=== PATIENT | female | born 1990 ===

== ENCOUNTER 2016-05-18 14:19 | Emergency (ER) | payer MEDICAID ==
[2016-05-18 14:20] VITALS: BMI 38.4
[2016-05-18 14:31] VITALS: BP 120/70; PULSE 88; RESP 20; TEMP 97.3; O2SAT 98
--- NOTE | 2016-05-18 15:45 | ED PDOC ---
HPI: Headache Time Seen by Provider: 05/18/16 14:52 Chief Complaint (Nursing): Headache Chief Complaint (Provider): headache History Per: Patient History/Exam Limitations: no limitations Additional Complaint(s): 26 y/o with recurrent headaches described as pressure and squeezing as well as fullness on/off for several weeks, not the worst of her life, with some relief with OTC tylenol and motrin. She notes being seen in this ED as well as [facility] [place], dx with URI, sinusitis and was placed on abx. still with some headache and was concerned thus presented for re-evaluation. Past Medical History Reviewed: Historical Data, Nursing Documentation, Vital Signs Vital Signs: Last Vital Signs Temp 97.3 F L 05/18/16 14:28 Pulse 88 05/18/16 14:28 Resp 20 05/18/16 14:28 BP 120/70 05/18/16 14:28 Pulse Ox 98 05/18/16 14:28 - Medical History PMH: Anxiety - Surgical History Surgical History: (x 1) - Family History Family History: States: Unknown Family Hx - Living Arrangements Living Arrangements: With Family - Social History Current smoker - smoking cessation education provided: No Alcohol: Occasional Drugs: Denies - Immunization History Hx Tetanus Toxoid Vaccination: No Hx Influenza Vaccination: Yes Hx Pneumococcal Vaccination: No - Home Medications Home Medications: Ambulatory Orders Medication Instructions Recorded ALPRAZolam HALF TABLET [Xanax HALF 0.125 mg PO Q6 PRN #10 tab 04/23/16 TABLET] Ibuprofen [Motrin Tab] 600 mg PO Q6 PRN #15 tab 05/10/16 Triamcinolone Acetonide [Nasacort 1 spray NS DAILY #1 unit 05/18/16 Allergy 24Hr] - Allergies Allergies/Adverse Reactions: Allergies Allergy/AdvReac Type Severity Reaction Status Date / Time peanut Allergy SWELLING Verified 05/18/16 14:28 Review of Systems ROS Statement: Except As Marked, All Systems Reviewed And Found Negative Constitutional: Positive for: Malaise. Negative for: Fever Eyes: Negative for: Pain, Vision Change ENT: Positive for: Nose Discharge Cardiovascular: Negative for: Chest Pain Respiratory: Negative for: Shortness of Breath Gastrointestinal: Negative for: Abdominal Pain Genitourinary Female: Negative for: Dysuria Musculoskeletal: Negative for: Neck Pain Skin: Negative for: Rash Neurological: Positive for: Headache. Negative for: Weakness, Numbness, Confusion, Seizures, Altered Mental Status, Dizziness Psych: Positive for: Anxiety (hx ) Physical Exam - Reviewed Nursing Documentation Reviewed: Yes Vital Signs Reviewed: Yes - Physical Exam Appears: Positive for: Well, No Acute Distress Head Exam: Positive for: NORMAL INSPECTION Skin: Positive for: Normal Color, Warm, Dry Eye Exam: Positive for: Normal appearance, EOMI, PERRL. Negative for: Nystagmus , Periorbital swelling, Periorbital tenderness, Conjunctival injection ENT: Positive for: Normal ENT Inspection Neck: Positive for: Normal, Painless ROM Cardiovascular/Chest: Positive for: Regular Rate, Rhythm Respiratory: Positive for: Normal Breath Sounds Extremity: Positive for: Normal ROM, Capillary Refill (normal ). Negative for: Tenderness Neurologic/Psych: Positive for: Alert, stretcher operator II-XII (grossly intact ), Oriented, Mood/Affect (normal), Cerebellar Tests (normal intact ), Gait (normal ), Other ( rhomberg normal, strength 5/5 upper and lower extremities ). Negative for: Motor/Sensory Deficits, Aphasia, Facial Droop - Laboratory Results Urine POC: Negative - ECG O2 Sat by Pulse Oximetry: 98 Pulse Ox Interpretation: Normal Medical Decision Making Medical Decision Makin26 y/o with recurrent headaches for several weeks, seen in this ED as well as [facility] [place], dx with URI, sinusitis on abx at this time. - CT head - Upreg. sinus CT- IMPRESSION:Chronic pansinusitis. No evidence of acute sinusitis. head CT- IMPRESSION: No intracranial mass, hemorrhage or evidence of acute infarct. Paranasal sinusitis. Please see report of CT of paranasal sinuses of same date. discussed with her CT head results. normal neuro examination with no focal weakness or deficits, will start on Nasacort, she will continue abx and follow up with ENT return information discussed, stable for discharge. Disposition - Clinical Impression Clinical Impression: Headache, Sinusitis - Patient ED Disposition Is Patient to be Admitted: No Counseled Patient/Family Regarding: Studies Performed, Diagnosis, Need For Followup, Rx Given - Disposition Referrals: Morris Elizondo MD [Staff Provider] - [facility] [Outside] Disposition: Routine/Home Disposition Time: 16:30 Condition: STABLE Prescriptions: Triamcinolone Acetonide [Nasacort Allergy 24Hr] 1 spray NS DAILY #1 unit Instructions: Rhinosinusitis (ED), General Headache (ED) Print Language: PALESTINIAN
--- NOTE | 2016-05-18 16:09 | CT ---
PROCEDURE: CT HEAD WITHOUT CONTRAST. HISTORY: headache COMPARISON: None available. TECHNIQUE: Axial computed tomography images were obtained through the head/brain without intravenous contrast. Radiation dose: Total exam DLP = 768.37 mGy-cm. FINDINGS: HEMORRHAGE: No intracranial hemorrhage. BRAIN: No mass effect or edema. No atrophy or chronic microvascular ischemic changes. VENTRICLES: Unremarkable. No hydrocephalus. CALVARIUM: Unremarkable. PARANASAL SINUSES: Chronic frontal, ethmoid and sphenoid sinusitis. MASTOID AIR CELLS: Unremarkable as visualized. No inflammatory changes. OTHER FINDINGS: None. IMPRESSION: No intracranial mass, hemorrhage or evidence of acute infarct. Paranasal sinusitis. Please see report of CT of paranasal sinuses of same date.
--- NOTE | 2016-05-18 16:12 | CT ---
PROCEDURE: CT SINUSES WITHOUT CONTRAST HISTORY: pain COMPARISON: None TECHNIQUE: Contiguous axial CT images of the paranasal sinuses were obtained. Coronal and sagittal reformats were generated. Radiation dose: Total exam DLP = 600.52 mGy-cm. FINDINGS: FRONTAL SINUSES: Mucoperiosteal thickening. No fluid collection ETHMOID SINUSES: Mucoperiosteal thickening. No fluid collection. SPHENOID SINUSES: Minimal mucoperiosteal thickening. No fluid collection. MAXILLARY SINUSES: Mucoperiosteal thickening bilaterally. No fluid collection. No mass. Bilateral julio bullosa noted. SINUS DRAINAGE: The ostiomeatal unit is intact bilaterally. Both maxillary ostia are occluded by mucosal thickening. The frontoethmoidal recess is occluded bilaterally by mucosal thickening. Sphenoid ethmoidal recesses are occluded. NASAL SEPTUM: No significant nasal septal deviation. MASS: None. SKULL BASE: Unremarkable. TEMPORAL BONES: Middle ears and mastoid grossly unremarkable. OTHER FINDINGS: None. IMPRESSION: Chronic pansinusitis. No evidence of acute sinusitis.
== END 2016-05-18 16:45 | disposition home or self-care (01) ==
LOC: H.ER 14:19
DX: R51 Headache (principal); J32.9 Chronic sinusitis, unspecified

== ENCOUNTER 2016-08-28 15:23 | Emergency (ER) | payer MEDICAID ==
[2016-08-28 15:23] VITALS: BMI 38.4
[2016-08-28 15:34] VITALS: BP 143/60; PULSE 90; RESP 16; TEMP 98.7; O2SAT 100
--- NOTE | 2016-08-28 16:09 | ED PDOC ---
HPI: Abdomen Time Seen by Provider: 08/28/16 16:07 Chief Complaint (Nursing): Abdominal Pain Chief Complaint (Provider): ABDOMINAL PAIN History Per: Patient (26 Y/O FEMALE HERE WITH RIGHT LOWER QUADRANT ABDOMINAL PAIN CRAMPY INTERMITTENT ONGOING X 2 WEEKS. DENIES ANY FEVERS/CHILLS. DENIES ANY DYURIA/VAGINAL DISCHARGE. NOTES HEADACHE WELL.) Past Medical History Reviewed: Historical Data, Nursing Documentation, Vital Signs Vital Signs: Last Vital Signs Temp 98.7 F 08/28/16 15:32 Pulse 90 08/28/16 15:32 Resp 16 08/28/16 15:32 BP 143/60 08/28/16 15:32 Pulse Ox 100 08/28/16 17:29 - Medical History PMH: Anxiety - Surgical History Surgical History: (x 1) - Family History Family History: States: Unknown Family Hx - Immunization History Hx Tetanus Toxoid Vaccination: No Hx Influenza Vaccination: Yes Hx Pneumococcal Vaccination: No - Home Medications Home Medications: Ambulatory Orders Medication Instructions Recorded ALPRAZolam HALF TABLET [Xanax HALF 0.125 mg PO Q6 PRN #10 tab 04/23/16 TABLET] Ibuprofen [Motrin Tab] 600 mg PO Q6 PRN #15 tab 05/10/16 Triamcinolone Acetonide [Nasacort 1 spray NS DAILY #1 unit 05/18/16 Allergy 24Hr] - Allergies Allergies/Adverse Reactions: Allergies Allergy/AdvReac Type Severity Reaction Status Date / Time peanut Allergy SWELLING Verified 08/28/16 15:32 Review of Systems ROS Statement: Except As Marked, All Systems Reviewed And Found Negative Gastrointestinal: Positive for: Abdominal Pain Physical Exam - Reviewed Nursing Documentation Reviewed: Yes Vital Signs Reviewed: Yes - Physical Exam Appears: Positive for: Well, Non-toxic, No Acute Distress Head Exam: Positive for: ATRAUMATIC, NORMAL INSPECTION, NORMOCEPHALIC Skin: Positive for: Normal Color, Warm, DRY Eye Exam: Positive for: EOMI, Normal appearance, PERRL ENT: Positive for: Normal ENT Inspection Neck: Positive for: Normal, Painless ROM Cardiovascular/Chest: Positive for: Regular Rate, Rhythm Respiratory: Positive for: CNT, Normal Breath Sounds Gastrointestinal/Abdominal: Positive for: Normal Exam, Bowel Sounds, Soft Pelvic Exam: Positive for: Tender Adnexa (TENDER RIGHT ADNEXA) Back: Positive for: Normal Inspection Extremity: Positive for: Normal ROM Neurologic/Psych: Positive for: Alert, Oriented - Laboratory Results Result Diagrams: 08/28/16 16:20 08/28/16 16:20 - ECG O2 Sat by Pulse Oximetry: 100 - Progress ED Course And Treament: Patient left prior to US evaluation of right lower quadrant pain. Left prior signing AMA formwork. Disposition - Clinical Impression Clinical Impression: Abdominal pain in female - Disposition Disposition: Left W/O Treatment Disposition Time: 17:29 Condition: FAIR
[2016-08-28 16:34] LABS: BASO # 0.1 K/uL (0.0-0.2); BASO % 0.7 % (0.0-2.0); EOS # 0.6 K/uL (0.0-0.7); EOS % 7.9 % (0.0-4.0); HEMOGLOBIN 12.5 g/dL (12.0-16.0); LYMPH # 2.6 K/uL (1.0-4.3); LYMPH % 32.5 % (20.0-40.0); MEAN CELL VOLUME 89.4 fl (81.0-99.0); MEAN CORPUSCULAR HEMOGLOBIN 29.3 pg (27.0-31.0); MEAN CORPUSCULAR HGB CONC 32.8 g/dL (33.0-37.0); MEAN PLATELET VOLUME 8.3 fl (7.2-11.7); MONO # 0.4 K/uL (0.0-0.8); MONO % 5.5 % (0.0-10.0); NEUT # 4.3 K/uL (1.8-7.0); NEUT % 53.4 % (50.0-75.0); RBC 4.26 Mil/uL (3.80-5.20); RED CELL DISTRIBUTION WIDTH 12.5 % (11.5-14.5); WHITE BLOOD COUNT 8.1 K/uL (4.8-10.8)
[2016-08-28 16:39] LABS: ALB/GLOB RATIO 1.3 (1.0-2.1); ALBUMIN 4.2 g/dL (3.5-5.0); ALT/SGPT 36 U/L (9-52); AST/SGOT 33 U/L (14-36); BLOOD UREA NITROGEN 12 mg/dl (7-17); CALCIUM 9.3 mg/dL (8.4-10.2); GFR AFRICAN-AMERICAN > 60; GFR NON-AFRICAN AMERICAN > 60; LIPASE 64 U/L (23-300)
[2016-08-28 16:55] LABS: SQUAMOUS EPITHIAL 6 /hpf (0-5); URINE BACTERIA RARE (<OCC); URINE BILIRUBIN NEGATIVE (NEGATIVE); URINE BLOOD NEGATIVE (NEGATIVE); URINE CLARITY SLIGHTY-CLOUDY (Clear); URINE COLOR YELLOW (YELLOW); URINE GLUCOSE (UA) NEG (Normal); URINE LEUKOCYTE ESTERASE NEG Leu/uL (Negative); URINE NITRATE NEGATIVE (NEGATIVE); URINE PROTEIN NEGATIVE (NEGATIVE); URINE UROBILINOGEN 0.2-1.0 mg/dL (0.2-1.0)
== END 2016-08-28 17:38 | disposition home or self-care (01) ==
LOC: H.ER 15:23
DX: R10.13 Epigastric pain (principal); F41.9 Anxiety disorder, unspecified

== ENCOUNTER 2016-09-10 12:43 | Emergency (ER) | payer MEDICAID ==
[2016-09-10 12:43] VITALS: BMI 38.4
[2016-09-10 12:48] VITALS: BP 123/60; PULSE 90; RESP 18; TEMP 98; O2SAT 100
--- NOTE | 2016-09-10 13:42 | ED PDOC ---
HPI: Female Pain Time Seen by Provider: 09/10/16 12:48 Chief Complaint (Nursing): Abnormal Labs Chief Complaint (Provider): Repeat Lab/ Vaginal Spotting History Per: Patient History/Exam Limitations: no limitations Onset/Duration Of Symptoms: Days (1) Current Symptoms Are (Timing): Still Present Additional Complaint(s): Rupali Miller is a 26 y/o female presenting to the ER on 09/10/2016 for vaginal spotting. Patient states she was evaluated in this ED on 08/28/2016 for vaginal bleeding while being . At that time, no ultrasound was performed. She was advised to return to the ED 2-3 days later for repeat hormone level. She states she did not return to the ED as advised because she had to attend family matters, while also noting that her bleeding resolved on its own. Yesterday evening, patient developed vaginal spotting which was less than her prior bleeding. Patient reports no history of ectopic pregnancies. She denies any associated abdominal pain, pelvic pain, vaginal discharge, dysuria, or hematuria. Of note, patient reports having a miscarriage in April 2016 Past Medical History Reviewed: Historical Data, Nursing Documentation, Vital Signs Vital Signs: Last Vital Signs Temp 98 F 09/10/16 12:46 Pulse 90 09/10/16 12:46 Resp 18 09/10/16 12:46 BP 123/60 09/10/16 12:46 Pulse Ox 100 09/10/16 12:46 - Medical History PMH: Anxiety - Surgical History Surgical History: No Surg Hx, (x 1) - Family History Family History: States: Unknown Family Hx - Social History Current smoker - smoking cessation education provided: No Alcohol: None Drugs: Denies - Immunization History Hx Tetanus Toxoid Vaccination: No Hx Influenza Vaccination: Yes Hx Pneumococcal Vaccination: No - Home Medications Home Medications: Ambulatory Orders Medication Instructions Recorded Multivit/Folic Acid/I 1 tab PO DAILY #30 tab 09/10/16 [ Plus] - Allergies Allergies/Adverse Reactions: Allergies Allergy/AdvReac Type Severity Reaction Status Date / Time peanut Allergy SWELLING Verified 09/10/16 14:09 Review of Systems ROS Statement: Except As Marked, All Systems Reviewed And Found Negative Gastrointestinal: Negative for: Abdominal Pain Genitourinary Female: Positive for: Other ((+) Vaginal spotting ). Negative for : Dysuria, Hematuria, Vaginal Discharge, Pelvic Pain Physical Exam - Reviewed Nursing Documentation Reviewed: Yes Vital Signs Reviewed: Yes - Physical Exam Appears: Positive for: Non-toxic, No Acute Distress Head Exam: Positive for: ATRAUMATIC, NORMOCEPHALIC Skin: Positive for: Normal Color. Negative for: Rash Eye Exam: Positive for: Normal appearance Neck: Positive for: Normal Gastrointestinal/Abdominal: Positive for: Normal Exam, Soft. Negative for: Tenderness Back: Positive for: Normal Inspection. Negative for: L CVA Tenderness, R CVA Tenderness Neurologic/Psych: Positive for: Alert, Oriented. Negative for: Motor/Sensory Deficits - Laboratory Results Result Diagrams: 09/10/16 14:07 09/10/16 14:07 - ECG O2 Sat by Pulse Oximetry: 100 Medical Decision Making Medical Decision Makin:48 Initial Impression- 26 y/o female with vaginal spotting Initial Plan- * Beta-HCG * CMP * Urine Dip * Urine Preg * CBC w/ differential * Urinalysis * Ultrasound OB Pt will be placed under ED Observation. See ED OBS for further progress. Documented by Malcolm Mo, acting as a scribe for Juan Escobar PA-C All medical record entries made by the Scribe were at my direction and personally dictated by me. I have reviewed the chart and agree that the record accurately reflects my personal performance of the history, physical exam, medical decision making, and the department course for this patient. I have also personally directed, reviewed, and agree with the discharge instructions and disposition. ED OBSERVATION Discharge: Yes Date of observation admission: 09/10/16 Time of observation admission: 13:26 - Observation admission statement Patient is being placed in observation because:: Secondary to extensive ED workup - Goals of Observation Goals of observation are:: Labs, imaging results, re-evaluation, and final disposition - Progress Note Progress Note: 09/10/16 14:58 Pt. in no distress. Pt. en route to US. 09/10/16 15:54 ULTRASOUND OB FINDINGS: UTERUS: Gestational sac: Single intrauterine gestation. Heart rate: 128 bpm. age (Ultrasound estimated): 5 weeks and 5 days Varsha-gestational hemorrhage: There is a 3.5 x 0.7 x 2.0 cm well-circumscribed hypoechoic area anterior inferior to the gestational sac. . Date of delivery (Ultrasound estimated) : 05/08/2017 Uterus measures 9.8 x 4.4 x 6.1 cm. Normal in size. CERVIX: Long and closed. No cervical abnormality seen. RIGHT OVARY: Measures 3.2 x 2.3 x 2.3 cm. No mass lesion. Normal flow. LEFT OVARY: Measures 2.6 x 1.3 x 2.2 cm. No solid mass. Normal flow. FREE FLUID: None. OTHER FINDINGS: None. IMPRESSION: Single live intrauterine gestation with mean gestational age of 5 weeks and 5 days. The estimated date of delivery by ultrasound is 05/08/2017. The ultrasound dates correspond with the clinical dates. Informed of results and instructed to f/u with OBGYN for care. Disposition - Clinical Impression Clinical Impression: Threatened miscarriage - Patient ED Disposition Is Patient to be Admitted: No - Disposition Referrals: [facility] [Outside] [facility] [Outside] Disposition: Routine/Home Disposition Time: 16:31 Condition: STABLE Additional Instructions: FOLLOW UP WITH YOUR OBGYN FOR CARE WITHOUT FAIL. Prescriptions: Multivit/Folic Acid/I [ Plus] 1 tab PO DAILY #30 tab Instructions: Threatened Miscarriage (ED) Print Language: FRENCH
[2016-09-10 13:59] LABS: SQUAMOUS EPITHIAL 1 /hpf (0-5); URINE BACTERIA RARE (<OCC); URINE BILIRUBIN NEGATIVE (NEGATIVE); URINE BLOOD NEGATIVE (NEGATIVE); URINE CLARITY CLEAR (Clear); URINE COLOR YELLOW (YELLOW); URINE GLUCOSE (UA) NEG (Normal); URINE LEUKOCYTE ESTERASE NEG Leu/uL (Negative); URINE NITRATE NEGATIVE (NEGATIVE); URINE PROTEIN NEGATIVE (NEGATIVE); URINE UROBILINOGEN 0.2-1.0 mg/dL (0.2-1.0)
[2016-09-10 14:16] LABS: BASO % 0.6 % (0.0-2.0); EOS # 0.5 K/uL (0.0-0.7); EOS % 6.4 % (0.0-4.0); HEMOGLOBIN 12.6 g/dL (12.0-16.0); LYMPH # 2.2 K/uL (1.0-4.3); LYMPH % 29.9 % (20.0-40.0); MEAN CELL VOLUME 88.6 fl (81.0-99.0); MEAN CORPUSCULAR HEMOGLOBIN 29.5 pg (27.0-31.0); MEAN CORPUSCULAR HGB CONC 33.3 g/dL (33.0-37.0); MEAN PLATELET VOLUME 8.4 fl (7.2-11.7); MONO # 0.4 K/uL (0.0-0.8); MONO % 5.5 % (0.0-10.0); NEUT # 4.2 K/uL (1.8-7.0); NEUT % 57.6 % (50.0-75.0); NRBC % 0.2 % (0.0-0.0); RBC 4.28 Mil/uL (3.80-5.20); RED CELL DISTRIBUTION WIDTH 12.2 % (11.5-14.5); WHITE BLOOD COUNT 7.3 K/uL (4.8-10.8)
[2016-09-10 14:25] LABS: ALB/GLOB RATIO 1.3 (1.0-2.1); ALBUMIN 3.9 g/dL (3.5-5.0); ALT/SGPT 32 U/L (9-52); AST/SGOT 32 U/L (14-36); BLOOD UREA NITROGEN 10 mg/dl (7-17); CALCIUM 9.4 mg/dL (8.4-10.2); GFR AFRICAN-AMERICAN > 60; GFR NON-AFRICAN AMERICAN > 60
--- NOTE | 2016-09-10 15:44 | US ---
PROCEDURE: OB Pelvic Ultrasound HISTORY: vaginal spotting COMPARISON: None available. FINDINGS: UTERUS: Gestational sac: Single intrauterine gestation. Heart rate: 128 bpm. age (Ultrasound estimated): 5 weeks and 5 days Varsha-gestational hemorrhage: There is a 3.5 x 0.7 x 2.0 cm well-circumscribed hypoechoic area anterior inferior to the gestational sac. . Date of delivery (Ultrasound estimated) : 05/08/2017 Uterus measures 9.8 x 4.4 x 6.1 cm. Normal in size. CERVIX: Long and closed. No cervical abnormality seen. RIGHT OVARY: Measures 3.2 x 2.3 x 2.3 cm. No mass lesion. Normal flow. LEFT OVARY: Measures 2.6 x 1.3 x 2.2 cm. No solid mass. Normal flow. FREE FLUID: None. OTHER FINDINGS: None. IMPRESSION: Single live intrauterine gestation with mean gestational age of 5 weeks and 5 days. The estimated date of delivery by ultrasound is 05/08/2017. The ultrasound dates correspond with the clinical dates. 3.5 x 0.7 x 2.0 cm subchorionic hemorrhage. Clinical and ultrasound follow-up is recommended.
== END 2016-09-10 16:11 | disposition home or self-care (01) ==
LOC: H.ER 12:43
DX: O20.0 Threatened abortion (principal); Z3A.01 Less than 8 weeks gestation of pregnancy

== ENCOUNTER 2016-09-26 09:44 | Emergency (ER) | payer MEDICAID ==
[2016-09-26 09:52] VITALS: BP 120/60; PULSE 79; TEMP 97; O2SAT 100
[2016-09-26 09:53] VITALS: BMI 31.6
[2016-09-26] MEDS ORDERED: Sodium Chloride 0.9% 1,000 ML IV STA (10:23)
--- NOTE | 2016-09-26 10:28 | ED PDOC ---
HPI: Female Pain Time Seen by Provider: 09/26/16 09:54 Chief Complaint (Nursing): Female Genitourinary History Per: Patient Onset/Duration Of Symptoms: Days (2) Current Symptoms Are (Timing): Still Present Severity: Mild Pain Scale Rating Of: 2 Quality Of Discomfort: Cramping Associated Symptoms: Nausea, Vomiting. denies: Diarrhea, Urinary Symptoms Additional Complaint(s): Lower abd cramping assoc with vaginal spotting x 2 days. Seen here 09/10 for same. Has also had nausea and vomiting Abnormal Vaginal Bleeding: Yes Last Menstral Period: 8 weeks ago Past Medical History Vital Signs: Last Vital Signs Temp 97 F L 09/26/16 09:52 Pulse 79 09/26/16 09:52 Resp BP 120/60 09/26/16 09:52 Pulse Ox 100 09/26/16 09:52 - Medical History PMH: Anxiety - Surgical History Surgical History: (x 1) - Family History Family History: States: Unknown Family Hx - Immunization History Hx Tetanus Toxoid Vaccination: No Hx Influenza Vaccination: Yes Hx Pneumococcal Vaccination: No - Home Medications Home Medications: Ambulatory Orders Medication Instructions Recorded Multivit/Folic Acid/I 1 tab PO DAILY #30 tab 09/10/16 [ Plus] Ondansetron [Zofran] 4 mg PO Q8H #10 tab 09/26/16 - Allergies Allergies/Adverse Reactions: Allergies Allergy/AdvReac Type Severity Reaction Status Date / Time peanut Allergy SWELLING Verified 09/26/16 10:08 Review of Systems Constitutional: Negative for: Fever Gastrointestinal: Positive for: Nausea, Vomiting, Abdominal Pain Genitourinary Female: Positive for: Vaginal Bleeding Physical Exam - Physical Exam Appears: Positive for: Non-toxic, No Acute Distress Skin: Positive for: Normal Color, Warm, DRY Gastrointestinal/Abdominal: Positive for: Bowel Sounds, Soft. Negative for: Tenderness Pelvic Exam: Positive for: External Exam Normal, No Cerv. Motion Tender, No Masses. Negative for: Active Bleeding, Tender Adnexa, Tender Uterus - Laboratory Results Result Diagrams: 09/26/16 10:28 09/26/16 10:28 - ECG O2 Sat by Pulse Oximetry: 100 Disposition - Clinical Impression Clinical Impression: Threatened miscarriage, Hyperemesis gravidarum - Patient ED Disposition Is Patient to be Admitted: No Counseled Patient/Family Regarding: Studies Performed, Diagnosis, Need For Followup, Rx Given - Disposition [facility] Disposition: Routine/Home Disposition Time: 12:03 Condition: FAIR Prescriptions: Ondansetron [Zofran] 4 mg PO Q8H #10 tab Instructions: Threatened Miscarriage (ED), Hyperemesis Gravidarum (ED) Forms: [facility] [facility] (Northern Irish)
[2016-09-26 10:40] LABS: BASO % 0.4 % (0.0-2.0); EOS # 0.3 K/uL (0.0-0.7); EOS % 3.5 % (0.0-4.0); HEMATOCRIT 37.9 % (34.0-47.0); LYMPH % 22.3 % (20.0-40.0); MEAN CELL VOLUME 88.7 fl (81.0-99.0); MEAN CORPUSCULAR HEMOGLOBIN 29.5 pg (27.0-31.0); MEAN CORPUSCULAR HGB CONC 33.2 g/dL (33.0-37.0); MEAN PLATELET VOLUME 8.2 fl (7.2-11.7); MONO # 0.4 K/uL (0.0-0.8); MONO % 4.9 % (0.0-10.0); NEUT # 6.3 K/uL (1.8-7.0); NEUT % 68.9 % (50.0-75.0); NRBC % 0.1 % (0.0-0.0); RED CELL DISTRIBUTION WIDTH 12.2 % (11.5-14.5); WHITE BLOOD COUNT 9.1 K/uL (4.8-10.8)
[2016-09-26 10:46] LABS: ALB/GLOB RATIO 1.3 (1.0-2.1); ALKALINE PHOSPHATASE 53 U/L (38-126); ALT/SGPT 26 U/L (9-52); AST/SGOT 29 U/L (14-36); BILIRUBIN,TOTAL 0.4 mg/dl (0.2-1.3); BLOOD UREA NITROGEN 8 mg/dl (7-17); CALCIUM 9.2 mg/dL (8.4-10.2); CARBON DIOXIDE 24 mmol/L (22-30); CHLORIDE 106 mmol/L (98-107); GFR AFRICAN-AMERICAN > 60; GLUCOSE,RANDOM 94 mg/dL (65-105); POTASSIUM 3.9 MMOL/L (3.6-5.0); SODIUM 138 mmol/l (132-148)
--- NOTE | 2016-09-26 11:58 | US ---
PROCEDURE: OB Pelvic Ultrasound HISTORY: Vaginal bleed COMPARISON: Comparison made with prior study 09/10/2016. FINDINGS: UTERUS: Gestational sac: MSD = 3.15 cm = 8 weeks 1 day. Yolk sac: 0.2 cm pole: CRL = 1.77 = 8 weeks 2 days Heart rate: 164 bpm. age (Ultrasound estimated): 8 weeks 2 days +/-0 weeks 4 days Varsha-gestational hemorrhage: None. Date of delivery (Ultrasound estimated) : 05/06/2017 Uterus measures 10.4 x 7.0 x 8.0 cm. Normal in size and appearance. CERVIX: Long and closed measuring approximately 3.3 cm. No cervical abnormality seen. RIGHT OVARY: Measures 2.6 x 1.7 x 2.2 cm. No mass lesion. Normal flow. LEFT OVARY: Measures 2.3 x 1.5 x 1.5 cm. No solid mass. Normal flow. FREE FLUID: None. OTHER FINDINGS: None. IMPRESSION: Living intrauterine station approximately 8 weeks 2 days plus or minus 0 weeks 4 days heart rate detected at 164 BPM
== END 2016-09-26 12:10 | disposition home or self-care (01) ==
LOC: H.ER 09:44
DX: O20.0 Threatened abortion (principal); O21.0 Mild hyperemesis gravidarum; Z3A.08 8 weeks gestation of pregnancy; F41.9 Anxiety disorder, unspecified

== ENCOUNTER 2016-11-25 10:34 | Emergency (ER) | payer MEDICAID ==
[2016-11-25 10:48] VITALS: BP 140/69; PULSE 91; RESP 16; TEMP 99.1; O2SAT 100
[2016-11-25 10:49] VITALS: BMI 30.1
[2016-11-25] MEDS ORDERED: Sodium Chloride 0.9% 1,000 ML IV STA (11:06)
--- NOTE | 2016-11-25 11:20 | ED PDOC ---
HPI: Abdomen Time Seen by Provider: 11/25/16 10:50 Chief Complaint (Nursing): Abdominal Pain Chief Complaint (Provider): Abdominal Pain History Per: Patient History/Exam Limitations: no limitations Current Symptoms Are (Timing): Still Present Additional Complaint(s): 26 y/o female, presents to the emergency department with a complaint of a sharp lower region abdominal pain x1 week. Associated with spotting last night but had resolved since. 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 States she spoke to her primary care doctor who advised her to visit the emergency department if she continues to have abdominal pain or sees spotting. Denies painful urination, bloody urination, diarrhea, fever, or chills. PMD: Dr. Duglas Shields MD Past Medical History Reviewed: Historical Data, Nursing Documentation, Vital Signs Vital Signs: Last Vital Signs Temp 99.1 F 11/25/16 10:47 Pulse 91 H 11/25/16 10:47 Resp 16 11/25/16 10:47 BP 140/69 11/25/16 10:47 Pulse Ox 100 11/25/16 13:25 - Medical History PMH: Anxiety Denies: Chronic Kidney Disease - Surgical History Surgical History: (x 1) - Family History Family History: States: Unknown Family Hx - Social History Current smoker - smoking cessation education provided: No Alcohol: None Drugs: Denies - Immunization History Hx Tetanus Toxoid Vaccination: No Hx Influenza Vaccination: Yes Hx Pneumococcal Vaccination: No - Home Medications Home Medications: Ambulatory Orders Medication Instructions Recorded No Known Home Med 11/25/16 - Allergies Allergies/Adverse Reactions: Allergies Allergy/AdvReac Type Severity Reaction Status Date / Time peanut Allergy SWELLING Verified 11/18/16 11:28 Review of Systems ROS Statement: Except As Marked, All Systems Reviewed And Found Negative Constitutional: Negative for: Fever, Chills Gastrointestinal: Positive for: Abdominal Pain. Negative for: Diarrhea Genitourinary Female: Positive for: Vaginal Bleeding (Spotting). Negative for: Dysuria, Hematuria Physical Exam - Reviewed Nursing Documentation Reviewed: Yes Vital Signs Reviewed: Yes - Physical Exam Appears: Positive for: Non-toxic, No Acute Distress Head Exam: Positive for: ATRAUMATIC, NORMAL INSPECTION, NORMOCEPHALIC Skin: Positive for: Normal Color, Warm, Dry Eye Exam: Positive for: Normal appearance Neck: Positive for: Normal, Supple Cardiovascular/Chest: Positive for: Regular Rate, Rhythm. Negative for: Murmur Respiratory: Positive for: Normal Breath Sounds. Negative for: Accessory Muscle Use, Respiratory Distress Gastrointestinal/Abdominal: Positive for: Soft, Tenderness (Bilateral lower quadrant tenderness.), Other (Suprapubic region is normal. ). Negative for: Normal Exam Back: Positive for: Normal Inspection. Negative for: L CVA Tenderness, R CVA Tenderness Neurologic/Psych: Positive for: Alert, Oriented (x3) - Laboratory Results Result Diagrams: 11/25/16 11:24 11/25/16 11:24 - ECG O2 Sat by Pulse Oximetry: 100 (RA) Pulse Ox Interpretation: Normal Medical Decision Making Medical Decision Making: Time: 10:50 Initial Impression: Abdominal pain in setting of known Initial Plan: --Type and Screen --BMP --Urine Preg --CBC w/ diff --PTT & Prothrombin --Sodium Chloride 1L IV --Urinalysis --OB US --Reevaluation Scribe Attestation: Documented by Wendi De La Fuente, acting as a scribe for Sveta Angulo MD. Provider Scribe Attestation: All medical record entries made by the Scribe were at my direction and personally dictated by me. I have reviewed the chart and agree that the record accurately reflects my personal performance of the history, physical exam, medical decision making, and the department course for this patient. I have also personally directed, reviewed, and agree with the discharge instructions and disposition. Disposition - Clinical Impression Clinical Impression: Threatened - Patient ED Disposition Is Patient to be Admitted: No Doctor Will See Patient In The: Office Counseled Patient/Family Regarding: Diagnosis, Need For Followup - Disposition [facility]errals[facility] [[facility]] [facility] [Outside] [facility] [Outside] Disposition: Routine/Home Disposition Time: 14:00 Condition: STABLE Instructions: Threatened Miscarriage (ED) Forms: [facility] (Frisian) - POA Present On Arrival: None
[2016-11-25 11:35] LABS: BASO % 0.4 % (0.0-2.0); EOS # 0.4 K/uL (0.0-0.7); EOS % 3.9 % (0.0-4.0); HEMATOCRIT 35.5 % (34.0-47.0); LYMPH # 1.8 K/uL (1.0-4.3); LYMPH % 17.3 % (20.0-40.0); MEAN CELL VOLUME 90.2 fl (81.0-99.0); MEAN CORPUSCULAR HEMOGLOBIN 29.7 pg (27.0-31.0); MEAN PLATELET VOLUME 8.1 fl (7.2-11.7); MONO # 0.5 K/uL (0.0-0.8); MONO % 4.7 % (0.0-10.0); NEUT # 7.7 K/uL (1.8-7.0); NEUT % 73.7 % (50.0-75.0); NRBC % 0.1 % (0.0-0.0); WHITE BLOOD COUNT 10.5 K/uL (4.8-10.8)
[2016-11-25 11:43] LABS: BLOOD UREA NITROGEN 7 mg/dl (7-17); CALCIUM 9.1 mg/dL (8.4-10.2); CARBON DIOXIDE 22 mmol/L (22-30); CHLORIDE 107 mmol/L (98-107); GFR AFRICAN-AMERICAN > 60; GLUCOSE,RANDOM 83 mg/dL (65-105); POTASSIUM 3.8 MMOL/L (3.6-5.0); SODIUM 137 mmol/l (132-148)
[2016-11-25 12:14] LABS: PARTIAL THROMBOPLASTIN TIME 29.7 Seconds (25.6-37.1)
[2016-11-25 12:43] LABS: RBC URINE 6 /hpf (0-3); URINE BILIRUBIN NEGATIVE (NEGATIVE); URINE BLOOD NEGATIVE (NEGATIVE); URINE COLOR YELLOW (YELLOW); URINE GLUCOSE (UA) NEG (Normal); URINE KETONE NEGATIVE (NEGATIVE); URINE LEUKOCYTE ESTERASE TRACE Leu/uL (Negative); URINE PROTEIN 30 mg/dL (NEGATIVE); URINE UROBILINOGEN 0.2-1.0 mg/dL (0.2-1.0); WBC URINE 6 /hpf (0-5)
--- NOTE | 2016-11-25 15:21 | US ---
PROCEDURE: OB Pelvic Ultrasound HISTORY: COMPARISON: None available. FINDINGS: UTERUS: Gestational sac: Single intrauterine gestation. Heart rate: 145 bpm. age (Ultrasound estimated): 17 weeks 4 days +/-1 week 2 days. Varsha-gestational hemorrhage: None. Date of delivery (Ultrasound estimated) : 05/01/2017 Placenta seen at the uterine fundus. Amount of amniotic fluid is adequate. CERVIX: The cervix is closed measures 5 centimeter. RIGHT OVARY: Was not visualized LEFT OVARY: Was not visualized FREE FLUID: None. OTHER FINDINGS: None. IMPRESSION: Single intrauterine live with ultrasound estimated gestational age of 17 weeks 4 days +/-1 week 2 days. Estimated date of delivery by ultrasound is 05/01/2017.
== END 2016-11-25 14:47 | disposition home or self-care (01) ==
LOC: H.ER 10:34
DX: O20.0 Threatened abortion (principal); Z3A.17 17 weeks gestation of pregnancy; F41.9 Anxiety disorder, unspecified
CPT/HCPCS: 76815; 80048; 81003; 81025; 85025; 85610; 85730; 86850; 86900; 96360; 96361; 99282; J7040

== ENCOUNTER 2017-02-14 19:22 | Emergency (ER) | payer MEDICAID ==
[2017-02-14 20:12] VITALS: BMI 31.9
[2017-02-14 21:12] LABS: RBC URINE 1 /hpf (0-3); URINE BACTERIA RARE (<OCC); URINE BILIRUBIN NEGATIVE (NEGATIVE); URINE BLOOD NEGATIVE (NEGATIVE); URINE COLOR YELLOW (YELLOW); URINE GLUCOSE (UA) NEG (Normal); URINE KETONE NEGATIVE (NEGATIVE); URINE LEUKOCYTE ESTERASE NEG Leu/uL (Negative); URINE PROTEIN NEGATIVE (NEGATIVE); URINE UROBILINOGEN 0.2-1.0 mg/dL (0.2-1.0); WBC URINE 2 /hpf (0-5)
--- NOTE | 2017-02-14 21:24 | US ---
EXAM: US After First Trimester, Transabdominal CLINICAL HISTORY: 26 years old, female; Pain; Pain indication: Cramps/contractions as per pt. ; ; Additional info: Ctx at ? 30 weeks ga TECHNIQUE: Real-time transabdominal obstetrical ultrasound of the maternal pelvis and a second or third trimester with image documentation. COMPARISON: No relevant prior studies available. FINDINGS: Fetus: Single live intrauterine gestation. Heart rate: heart rate of 144 beats per minute. Presentation: Cephalic. Placenta: Posterior fundal. No placenta previa or abruption. Amniotic fluid: MASON = 13.2 cm. Anatomy: No gross anomaly is appreciated. BIOMETRICS Gestational age by US: Estimated gestational age of 29 weeks 0 days by measurements. EFW: Estimated weight of 1220 g. BPD: 7.5 cm, correlating with 30 weeks one day. HC: 26.7 cm, correlating with 29 weeks 0 days. AC: 22.9 cm, correlating with 27 weeks 2 days. FL: 5.6 cm, correlating with 29 weeks 4 days. MATERNAL: Uterus: Unremarkable. No myometrial mass. Cervix: No cervical dilatation or effacement. Free fluid: No free fluid. IMPRESSION: 1. Single live intrauterine gestation. EXAM: US , Transvaginal CLINICAL HISTORY: 26 years old, female; Pain; Pain indication: Cramps/contractions as per pt. ; ; Additional info: Ctx at ? 30 weeks ga TECHNIQUE: Real-time endovaginal obstetrical ultrasound of the maternal pelvis and second or third trimester with image documentation. Endovaginal imaging was used for better evaluation of the cervix. COMPARISON: No relevant prior studies available. FINDINGS: Fetus: Single live intrauterine gestation. Heart rate: heart rate of 144 beats per minute. Presentation: Cephalic. Placenta: Posterior fundal. No placenta previa or abruption. Amniotic fluid: MASON = 13.2 cm. Anatomy: No gross anomaly is appreciated. BIOMETRICS Gestational age by US: Estimated gestational age of 29 weeks 0 days by measurements. EFW: Estimated weight of 1220 g. BPD: 7.5 cm, correlating with 30 weeks one day. HC: 26.7 cm, correlating with 29 weeks 0 days. AC: 22.9 cm, correlating with 27 weeks 2 days. FL: 5.6 cm, correlating with 29 weeks 4 days. MATERNAL: Uterus: Unremarkable. No myometrial mass. Cervix: No cervical dilatation or effacement. Free fluid: No free fluid. IMPRESSION: 1. Single live intrauterine gestation. EXAM: US Biophysical Profile Without Non-Stress Testing CLINICAL HISTORY: 26 years old, female; Pain; Pain indication: Cramps/contractions as per pt. ; ; Additional info: Ctx at ? 30 weeks ga TECHNIQUE: Real-time ultrasound of the maternal pelvis for biophysical profile evaluation with image documentation. COMPARISON: No relevant prior studies available. FINDINGS: breathing movements: Present. Score 2/2. Gross body movements: Present. Score 2/2. tone: Present. Score 2/2. Qualitative amniotic fluid volume: Within normal limits. Score 2/2. IMPRESSION: Normal biophysical profile ultrasound. Score 8/8.
[2017-02-15 04:39] VITALS: BP 100/51; PULSE 74; RESP 17; TEMP 97.9
== END 2017-02-14 22:00 | disposition home or self-care (01) ==
LOC: H.EROB2 19:22
DX: O26.93 Pregnancy related conditions, unspecified, third trimester (principal); R10.2 Pelvic and perineal pain; Z3A.30 30 weeks gestation of pregnancy; Z87.59 Personal history of other complications of pregnancy, childbirth and the puerperium

== ENCOUNTER 2017-09-30 22:37 | Emergency (ER) | payer SELFPAY ==
[2017-09-30 22:37] VITALS: BMI 31.9
[2017-09-30 23:03] VITALS: O2SAT 100
[2017-10-01] MEDS ORDERED: Sodium Chloride 0.9% 1,000 ML IV STA (00:54)
--- NOTE | 2017-10-01 00:57 | ED PDOC ---
HPI:Nausea, Vomiting, Diarrhea Time Seen by Provider: 10/01/17 00:45 Chief Complaint (Nursing): Abdominal Pain Chief Complaint (Provider): : vomiting History Per: Patient History/Exam Limitations: no limitations Onset/Duration Of Symptoms: Days (1) Current Symptoms Are (Timing): Still Present Additional Complaint(s): 27 y/o female presents for evaluation of multiple episodes of vomiting x 1 day. Patient states she found out she was 2 weeks ago, LMP 07/06/17, states she has not received care thus far because she plans on terminating the , has appt 10/05. Patient states after the first few episodes of vomiting she began to develop "burning" in her upper abdomen. Denies fever, chest pain, shortness of breath, palpitations, vaginal bleeding/discharge, urinary symptoms. Abnormal Vaginal Bleeding: No Last Menstral Period: 07/06/17 : 6 Para: 3 Miscarriage: 2 Past Medical History Reviewed: Historical Data, Nursing Documentation, Vital Signs Vital Signs: Last Vital Signs Temp 99.1 F 09/30/17 23:02 Pulse 95 H 09/30/17 23:02 Resp 20 09/30/17 23:02 BP 115/67 09/30/17 23:02 Pulse Ox 100 09/30/17 23:02 - Medical History PMH: Anxiety Denies: Chronic Kidney Disease - Surgical History Surgical History: (x 1) - Family History Family History: States: Unknown Family Hx - Immunization History Hx Tetanus Toxoid Vaccination: No Hx Influenza Vaccination: Yes Hx Pneumococcal Vaccination: No - Home Medications Home Medications: Ambulatory Orders Medication Instructions Recorded Doxylamine/Pyridoxine HCl (B6) 1 - 2 each PO HS #16 tablet. 10/01/17 [Dicamanda Levine 10-10 mg Tablet] Nitrofurantoin Macrocrystals 100 mg PO BID #13 cap 10/01/17 [Macrobid] - Allergies Allergies/Adverse Reactions: Allergies Allergy/AdvReac Type Severity Reaction Status Date / Time peanut Allergy SWELLING Verified 11/18/16 11:28 Review of Systems ROS Statement: Except As Marked, All Systems Reviewed And Found Negative Gastrointestinal: Positive for: Nausea, Vomiting, Abdominal Pain Physical Exam - Reviewed Nursing Documentation Reviewed: Yes Vital Signs Reviewed: Yes - Physical Exam Appears: Positive for: Well, Non-toxic, No Acute Distress Head Exam: Positive for: ATRAUMATIC, NORMAL INSPECTION, NORMOCEPHALIC Skin: Positive for: Normal Color Eye Exam: Positive for: Normal appearance ENT: Positive for: Normal ENT Inspection Cardiovascular/Chest: Positive for: Regular Rate, Rhythm Respiratory: Positive for: Normal Breath Sounds Gastrointestinal/Abdominal: Positive for: Bowel Sounds, Soft, Tenderness ( epigsatric) Back: Positive for: Normal Inspection Extremity: Positive for: Normal ROM Neurologic/Psych: Positive for: Alert, Oriented - Laboratory Results Result Diagrams: 10/01/17 01:16 10/01/17 01:16 - ECG O2 Sat by Pulse Oximetry: 100 - Progress ED Course And Treament: labs, IV fluids, IV zofran, IV pepcid On re-eval, patient states she is feeling better. Tolerated PO Patient educated on findings, discharged with rx Macrobid (dose given in ED), Chilo Advised follow up Loading Checker 2-3 days Return precautions given Disposition - Clinical Impression Clinical Impression: Hyperemesis gravidarum, Urinary tract infection - Patient ED Disposition Is Patient to be Admitted: No Counseled Patient/Family Regarding: Studies Performed, Diagnosis, Need For Followup, Rx Given - Disposition [facility] Duglas Shields Jr., MD [Primary Care Provider] - Disposition: Routine/Home Disposition Time: 04:21 Condition: IMPROVED Prescriptions: Doxylamine/Pyridoxine HCl (B6) [Chilo Levine 10-10 mg Tablet] 1 - 2 each PO HS # 16 tablet. Nitrofurantoin Macrocrystals [Macrobid] 100 mg PO BID #13 cap Instructions: Hyperemesis Gravidarum, Urinary Tract Infections in Adults Forms: [facility] ([place])
[2017-10-01 01:27] LABS: BASO % 0.2 % (0.0-2.0); EOS # 0.2 K/uL (0.0-0.7); EOS % 1.6 % (0.0-4.0); HEMOGLOBIN 13.2 g/dL (12.0-16.0); LYMPH # 0.6 K/uL (1.0-4.3); LYMPH % 5.2 % (20.0-40.0); MEAN CELL VOLUME 88.1 fl (81.0-99.0); MEAN CORPUSCULAR HEMOGLOBIN 29.5 pg (27.0-31.0); MEAN CORPUSCULAR HGB CONC 33.5 g/dL (33.0-37.0); MEAN PLATELET VOLUME 7.8 fl (7.2-11.7); MONO # 0.5 K/uL (0.0-0.8); MONO % 4.4 % (0.0-10.0); NEUT # 11.1 K/uL (1.8-7.0); NEUT % 88.6 % (50.0-75.0); PLATELET COUNT 189 K/uL (130-400); RBC 4.48 Mil/uL (3.80-5.20); RED CELL DISTRIBUTION WIDTH 13.1 % (11.5-14.5); WHITE BLOOD COUNT 12.5 K/uL (4.8-10.8)
[2017-10-01 01:33] LABS: ALB/GLOB RATIO 1.3 (1.0-2.1); ALBUMIN 4.2 g/dL (3.5-5.0); ALT/SGPT 25 U/L (9-52); AST/SGOT 27 U/L (14-36); BLOOD UREA NITROGEN 11 mg/dl (7-17); CALCIUM 9.3 mg/dL (8.4-10.2); GFR AFRICAN-AMERICAN > 60; GFR NON-AFRICAN AMERICAN > 60; LIPASE 79 U/L (23-300)
[2017-10-01 02:05] LABS: SQUAMOUS EPITHIAL 15 /hpf (0-5); URINE BACTERIA OCC (<OCC); URINE BILIRUBIN NEGATIVE (NEGATIVE); URINE BLOOD NEGATIVE (NEGATIVE); URINE CLARITY CLOUDY (Clear); URINE COLOR AMBER (YELLOW); URINE GLUCOSE (UA) NEG (Normal); URINE LEUKOCYTE ESTERASE MOD Leu/uL (Negative); URINE PROTEIN 30 mg/dL (NEGATIVE)
[2017-10-01 02:49] LABS: ANISOCYTOSIS SLIGHT; BANDS 1 % (0-2); BASOPHIL 1 % (0-2); EOSINOPHIL 1 % (0-7); HYPOCHROMIC SLIGHT; LYMPHOCYTE 5 % (20-50); MONOCYTE 2 % (0-10); NEUTROPHIL 90 % (42-75); PLATELET ESTIMATE NORMAL (NORMAL); TOTAL CELLS COUNTED 100
[2017-10-01 02:50] LABS: LARGE PLATELETS PRESENT
[2017-10-01 06:18] VITALS: BP 130/89; PULSE 89; RESP 17; TEMP 98.8
== END 2017-10-01 06:17 | disposition home or self-care (01) ==
LOC: H.ER 22:37
DX: O21.0 Mild hyperemesis gravidarum (principal); O23.40 Unspecified infection of urinary tract in pregnancy, unspecified trimester; F41.9 Anxiety disorder, unspecified
CPT/HCPCS: 80053; 81003; 81025; 83690; 85025; 87086; 96361; 96365; 96375; 99283; J2405; J2765; J7030

== ENCOUNTER 2017-11-25 12:24 | Emergency (ER) | payer MEDICAID ==
[2017-11-25 12:44] VITALS: BMI 32.3
[2017-11-25 13:29] LABS: SQUAMOUS EPITHIAL 9 /hpf (0-5); URINE BACTERIA MANY (<OCC); URINE BILIRUBIN NEGATIVE (NEGATIVE); URINE BLOOD MODERATE (NEGATIVE); URINE CLARITY TURBID (Clear); URINE COLOR AMBER (YELLOW); URINE GLUCOSE (UA) NEG (Normal); URINE LEUKOCYTE ESTERASE TRACE Leu/uL (Negative); URINE PROTEIN 100 mg/dL (NEGATIVE); URINE UROBILINOGEN 0.2-1.0 mg/dL (0.2-1.0)
--- NOTE | 2017-11-25 13:38 | ED PDOC ---
HPI: Female Pain Time Seen by Provider: 11/25/17 13:20 Chief Complaint (Nursing): Female Genitourinary Chief Complaint (Provider): VAGINAL BLEEDING History Per: Patient (27 Y/O FEMALE RECENT D &C 11/17 HERE FOR EVALUATION OF HEAVY VAGINAL BLEEDING WITH CLOTS. WAS TREATED WITH ANTIBIOTICS X 5 DAYS BY CLINIC AND ALSO TOOK AUGMENTIN FOR DENTAL PAIN. DENIES ANY FEVERS/CHILLS BUT NOTES SUPRAPUBIC TENDERNESS.) Past Medical History Reviewed: Historical Data, Nursing Documentation, Vital Signs Vital Signs: Last Vital Signs Temp 98.4 F 11/25/17 12:41 Pulse 78 11/25/17 12:41 Resp 18 11/25/17 12:41 BP 126/77 11/25/17 12:41 Pulse Ox 99 11/25/17 12:41 - Medical History PMH: Anxiety Denies: Chronic Kidney Disease - Surgical History Surgical History: (x 1) - Family History Family History: States: Unknown Family Hx - Immunization History Hx Tetanus Toxoid Vaccination: No Hx Influenza Vaccination: Yes Hx Pneumococcal Vaccination: No - Home Medications Home Medications: Ambulatory Orders Medication Instructions Recorded Doxylamine/Pyridoxine HCl (B6) 1 - 2 each PO HS #16 tablet. 10/01/17 [Chilo Levine 10-10 mg Tablet] Nitrofurantoin Macrocrystals 100 mg PO BID #13 cap 10/01/17 [Macrobid] Cephalexin [Keflex] 500 mg PO TID #15 capsule 11/25/17 miSOPROStol [Cytotec] 3 tab PO ONCE PRN #3 tab 11/25/17 - Allergies Allergies/Adverse Reactions: Allergies Allergy/AdvReac Type Severity Reaction Status Date / Time peanut Allergy SWELLING Verified 11/18/16 11:28 Review of Systems ROS Statement: Except As Marked, All Systems Reviewed And Found Negative Physical Exam - Reviewed Nursing Documentation Reviewed: Yes Vital Signs Reviewed: Yes - Physical Exam Appears: Positive for: Well, Non-toxic, No Acute Distress Head Exam: Positive for: ATRAUMATIC, NORMAL INSPECTION, NORMOCEPHALIC Skin: Positive for: Normal Color, Warm, DRY Eye Exam: Positive for: EOMI, Normal appearance, PERRL ENT: Positive for: Normal ENT Inspection Neck: Positive for: Normal, Painless ROM Cardiovascular/Chest: Positive for: Regular Rate, Rhythm Respiratory: Positive for: CNT, Normal Breath Sounds Gastrointestinal/Abdominal: Positive for: Normal Exam, Soft Pelvic Exam: Positive for: Other (CLOSED CERVIX. VAGINAL BLEEDING IN VAGINAL VAULT.) Back: Positive for: Normal Inspection Extremity: Positive for: Normal ROM Neurologic/Psych: Positive for: Alert, Oriented - Laboratory Results Result Diagrams: 11/25/17 14:00 11/25/17 14:00 Urine POC: Positive Urine dip results: Positive for: Leukocyte Esterase, Blood, Nitrate - ECG O2 Sat by Pulse Oximetry: 99 - Progress ED Course And Treament: US TRANSVAGINAL: IMPRESSION: Trace complex fluid within the endometrial canal likely reflecting blood products. D/W DR. OLIVERA. RECOMMENDS CYTOTEC 600MG X 1 DOSE FOR PERSISTENT BLEEDING. D/W PATIENT SIDE EFFECTS OF NAUSEA,ABDOMINAL CRAMPING. Disposition - Clinical Impression Clinical Impression: Vaginal bleeding, Urinary tract infection - Patient ED Disposition Is Patient to be Admitted: No - Disposition Disposition: Routine/Home Disposition Time: 15:53 Condition: FAIR Prescriptions: Cephalexin [Keflex] 500 mg PO TID #15 capsule miSOPROStol [Cytotec] 3 tab PO ONCE PRN #3 tab PRN Reason: Other Instructions: Urinary Tract Infections in Adults, Dilation and Curettage
[2017-11-25 14:12] LABS: BASO # 0.1 K/uL (0.0-0.2); EOS # 0.7 K/uL (0.0-0.7); HEMOGLOBIN 12.7 g/dL (12.0-16.0); LYMPH # 2.5 K/uL (1.0-4.3); LYMPH % 35.9 % (20.0-40.0); MEAN CELL VOLUME 89.7 fl (81.0-99.0); MEAN CORPUSCULAR HEMOGLOBIN 29.8 pg (27.0-31.0); MEAN CORPUSCULAR HGB CONC 33.2 g/dL (33.0-37.0); MEAN PLATELET VOLUME 7.7 fl (7.2-11.7); MONO # 0.3 K/uL (0.0-0.8); MONO % 4.8 % (0.0-10.0); NEUT # 3.4 K/uL (1.8-7.0); NEUT % 48.3 % (50.0-75.0); NRBC % 0.1 % (0.0-0.0); RBC 4.26 Mil/uL (3.80-5.20); RED CELL DISTRIBUTION WIDTH 13.1 % (11.5-14.5); WHITE BLOOD COUNT 6.9 K/uL (4.8-10.8)
[2017-11-25 14:31] LABS: ALB/GLOB RATIO 1.1 (1.0-2.1); ALBUMIN 3.9 g/dL (3.5-5.0); ALT/SGPT 22 U/L (9-52); AST/SGOT 24 U/L (14-36); BLOOD UREA NITROGEN 9 mg/dl (7-17); CALCIUM 9.2 mg/dL (8.4-10.2); GFR NON-AFRICAN AMERICAN > 60
--- NOTE | 2017-11-25 14:35 | US ---
Date of service: 11/25/2017 HISTORY: R/O RETAINED PRODUCTS RECENT D C COMPARISON: None available. TECHNIQUE: Grayscale, color Doppler and spectral evaluation the pelvis performed transabdominally and transvaginally. FINDINGS: UTERUS: Measures 8.2 x 6.2 x 5.0 cm. Anteverted. Normal in size and appearance. No fibroid or other mass lesion seen. ENDOMETRIUM: Measures 3 mm in diameter. Trace complex fluid within the endometrial canal. CERVIX: No cervical abnormality identified. RIGHT OVARY: Measures 3.0 x 2.4 x 2.1 cm. No solid mass. Normal flow. LEFT OVARY: Measures 3.3 x 2.3 x 1.5 cm. No solid mass. Normal flow. FREE FLUID: No significant free fluid noted. OTHER FINDINGS: None. IMPRESSION: Trace complex fluid within the endometrial canal likely reflecting blood products.
[2017-11-25 16:09] VITALS: BP 117/74; PULSE 71; RESP 17; TEMP 98.2
[2017-11-25 17:34] VITALS: O2SAT 99
== END 2017-11-25 16:08 | disposition home or self-care (01) ==
LOC: H.ER 12:24
DX: N39.0 Urinary tract infection, site not specified (principal); N93.9 Abnormal uterine and vaginal bleeding, unspecified